=== PATIENT | male | born 1960 | race Two or more races ===

== ENCOUNTER 2016-06-28 04:21 | Inpatient (IN) | payer OTHER ==
[2016-06-28] VITALS (7 sets, daily range): BP systolic 106–113; BP diastolic 62–79
[~2016-06-28] VITALS: Ht 175.3 cm; Wt 71.2 kg
[~2016-06-28 04:21] MED LIST: BUPR150T12 PO; TRAZ150T68 PO
[2016-06-28] MEDS ORDERED: IV SET PRIMARY 1 EA INFUS.SET MC ONE ×3 (04:47→06:55)
[2016-06-28] MEDS ORDERED: Magnesium 1GM/D5W 100ML PREMIX 200 ML IV ONE (04:47)
[2016-06-28] MEDS ORDERED: IV NS 0.9% 1,000 ML ONE ×3 (04:47→06:55)
[2016-06-28 04:57] LABS: HEMATOCRIT 46 % (39-51); HEMOGLOBIN 15.4 g/dL (13.5-17.5); LYMPHOCYTES # (AUTO) 0.4 /CMM (0.8-4.8); LYMPHOCYTES % (AUTO) 1.9 % (20.0-44.0); MEAN CORPUSCULAR HEMOGLOBIN 31 PG (26.0-33.0); MEAN CORPUSCULAR HGB CONC 34 g/dl (31.0-36.0); MEAN CORPUSCULAR VOLUME 92 fL (80-96); MONOCYTES # (AUTO) 1.2 /CMM (0.1-1.30); MONOCYTES % (AUTO) 5.6 % (2.0-12.0); NEUTROPHILS # (AUTO) 19.3 /CMM (1.8-8.9); NEUTROPHILS % (AUTO) 92.5 % (43.0-81.0); PLATELET COUNT (AUTO) 324 /CMM (150-450); RDW COEFFICIENT OF VARIATION 14.3 (11.5-15.0); RED BLOOD CELL COUNT(AUTO) 4.96 MIL/uL (4.5-6.0); WHITE BLOOD COUNT (AUTO) 20.9 K/uL (4.3-11.0)
--- NOTE | 2016-06-28 04:58 | NUR ---
PT BIBDean, PT IS A./OX4 BREATHING EFFORTLESSLY ON ROOM AIR, PT STATES HE DRANK 3 5THS OF VODKA AND WINE AND BEER TODAY, PT IS ON MONITOR, PT CLEANED UP, IV PLACED, BLOOD DRAWN, MD LATIF AWARE WILL CONTINUE TO MONITOR.
[2016-06-28] MEDS ORDERED: IV NS 0.9% 1,000 ML BAG IV ONE ×4 (05:00→09:30)
[2016-06-28] MEDS ORDERED: Magnesium 1 GM/2 ML VIAL IV ONE (05:00)
[2016-06-28 05:04] LABS: CALCIUM, SERUM 8.3 mg/dL (8.5-10.1); CREATININE 1.1 mg/dL (0.6-1.3); POTASSIUM 3.1 mmol/L (3.5-5.1)
[2016-06-28 05:08] LABS: INR 0.96 (0.87-1.13); PROTHROMBIN TIME 10.2 SECS (9.5-12.7)
[2016-06-28 05:10] LABS: ALBUMIN 4.2 g/dL (3.4-5.0); BILIRUBIN,DIRECT 0.2 mg/dL (0.0-0.2); BILIRUBIN,TOTAL 0.6 mg/dL (0.2-1.0); TOTAL PROTEIN, SERUM 8.8 g/dL (6.4-8.2)
[2016-06-28 05:11] LABS: SALICYLATE 1.7 mg/dL (2.8-20.0)
[2016-06-28 05:29] LABS: BAND % (MANUAL) 29 % (0.0-5.0); LYMPHOCYTES % (MANUAL) 2 % (16-48); MONOCYTES % (MANUAL) 8 % (0-11.0); NEUTROPHILS % (MANUAL) 60 (42-76); REACTIVE LYMPHOCYTES 1 % (0-0)
[2016-06-28] MEDS ORDERED: LORAZEPAM INJ 2 MG/ML VIAL ONE ×2 (05:51→05:58)
[2016-06-28] MEDS ORDERED: LORAZEPAM INJ 2 MG/ML VIAL IV ONE ×2 (06:00)
[2016-06-28] MEDS ORDERED: LIDOCAINE 2% JEL UROJET 10 ML MM ONE ×2 (06:43→07:00)
[2016-06-28] MEDS ORDERED: ACETAMINOPHEN ES 500 MG TABLET ONE (06:46)
--- NOTE | 2016-06-28 06:47 | NUR ---
PT HAS AN ELEVATED TEMPERATURE NOW, MADE AWARE, PT SLEEPING IN BED ON MONITOR, WILL CONTINUE TO MONITOR.
[2016-06-28] MEDS ORDERED: ACETAMINOPHEN 325 MG TABLET PO ONE (07:00)
[2016-06-28] MEDS ORDERED: CEFTRIAXONE 1GM BAG (ER ONLY) 50 ML IV ONE (07:00)
[2016-06-28] MEDS ORDERED: PIPERACILLIN /TAZOBACTAM 3.375 G in IV D5W 50 ML IV ONE (07:00)
--- NOTE | 2016-06-28 07:15 | NUR ---
RECEIVED REPORT FROM [facility]
[2016-06-28] MEDS ORDERED: IV SET PRIMARY PUMP SET 1 EA INFUS.SET MC ONE ×5 (07:27→14:51)
[2016-06-28 07:32] LABS: APPEARANCE,URINE CLEAR (CLEAR); BILIRUBIN,URINE NEGATIVE (NEGATIVE); BLOOD, URINE TRACE-INTA Ery/uL (NEGATIVE); COLOR,URINE YELLOW (YELLOW); KETONES,URINE NEGATIVE (NEGATIVE); LEUKOCYTE ESTERASE ,URINE NEGATIVE (NEGATIVE); NITRITE, URINE NEGATIVE (NEGATIVE); PROTEIN,URINE NEGATIVE (NEGATIVE); UGLUCOSE NEGATIVE (NEGATIVE); UROBILINOGEN,URINE 0.2 EU/dL (0.2)
[2016-06-28 07:40] LABS: WBC,URINE 0-2 /HPF (0-3)
[2016-06-28 07:41] LABS: BACTERIA,URINE Rare /HPF (None Seen)
--- NOTE | 2016-06-28 07:45 | NUR ---
PAGED DR EVGENY KLEIN FOR ADMISSION
--- NOTE | 2016-06-28 08:44 | NUR ---
GAVE REPORT TO TROY CRANEFLAKER OPERATOR ROOM 323-2. DX FEVER , DIARRHEA. DR PEPPER ADMITTING. TRANSFER VIA ACLS PROTOCOL
--- NOTE | 2016-06-28 09:00 | NUR ---
SEEING EYE DOG TRAINERARCADE ATTENDANT NOTES ADMITTED PT FROM ER WITH DX OF SEIZURE.SKIN IS WARM AND DRY WITH NON LABORED RESPIRATION ON ROOM AIR.PT IS SLEEPING AND RESPONSIVE ONLY WITH TACTILE STIMULI.OCCASIONALLY SPEAKS UP BUT SPEECH IS UNCLEAR AND CAN'T BE UNDERSTOOD.SKIN INTACT.WILL CONTINUE TO MONITOR.
[2016-06-28 09:27] LABS: SQUAMOUS EPITHELIAL CELL,UR Rare /HPF (None Seen)
[2016-06-28] MEDS ORDERED: VANCOMYCIN 1 GM in IV D5W 250 ML IV ONE (09:30)
[2016-06-28] MEDS ORDERED: ZOLPIDEM TARTRATE 5 MG TABLET PO PRN (09:30)
[2016-06-28] MEDS ORDERED: ONDANSETRON HCL/PF 4 MG/2 ML VIAL IVP PRN (09:30)
[2016-06-28] MEDS ORDERED: Z GUARD REMEDY 2 OZ OINT TP PRN (09:30)
[2016-06-28] MEDS ORDERED: HYDROCODONE/APAP 5/325MG 1 EACH TABLET PO PRN (09:30)
[2016-06-28] MEDS ORDERED: MAGNESIUM HYDROXIDE 30 ML UDC PO PRN (09:30)
[2016-06-28] MEDS ORDERED: MAG HYDROX/AL HYDROX/SIMETH 30 ML UDC PO PRN (09:30)
[2016-06-28] MEDS ORDERED: LORAZEPAM INJ 2 MG/ML VIAL IVP PRN (09:30)
[2016-06-28] MEDS ORDERED: MORPHINE SULFATE INJ 2 MG/ML DISP.SYRIN IV PRN ×2 (09:30)
[2016-06-28] MEDS ORDERED: ACETAMINOPHEN 325 MG TABLET PO PRN (09:30)
[2016-06-28] MEDS ORDERED: IV D5/ 0.9% NACL 1,000 ML IV PRN ×2 (09:30)
[2016-06-28] MEDS ORDERED: FEE PK DOSING 1 MIN EA MC ONE (10:31)
[2016-06-28 10:49] LABS: BILIRUBIN,DIRECT 0.1 mg/dL (0.0-0.2); BILIRUBIN,TOTAL 0.9 mg/dL (0.2-1.0); TOTAL PROTEIN, SERUM 6.7 g/dL (6.4-8.2)
[2016-06-28] MEDS ORDERED: POTASSIUM CHLORIDE 20 MEQ TAB.PRT.SR PO SCH (11:00)
[2016-06-28] MEDS: PANTOPRAZOLE 40 MG VIAL IV SCH (12:13)
[2016-06-28] MEDS: Folic acid 1 MG in IV D5W 50 ML IV SCH (12:14)
[2016-06-28] MEDS: POTASSIUM CL. PREMIX PERIPHER. 50 ML IV SCH ×6 (12:35→18:44)
[2016-06-28] MEDS: Thiamine 100 MG in IV D5W 50 ML IV SCH (13:03)
[2016-06-28] MEDS: VANCOMYCIN 1.25 GM in IV D5W 500 ML IV SCH ×2 (13:20→23:20)
--- NOTE | 2016-06-28 13:30 | NUR ---
CALLED DR PEPPER AND UPDATED ON PT'S SEPSIS REASSESSMENT POST FLUID RESULT.
[2016-06-28] MEDS: PIPERACILLIN /TAZOBACTAM 3.375 G in IV D5W 50 ML IV SCH ×2 (13:41→18:44)
--- NOTE | 2016-06-28 13:45 | NUR ---
CONSENT FOR LUMBAR PUNCTURE NOT YET OBTAINED. RADIOLOGIST NOT AVAILABLE AFTER 1400. RN AWARE.
[2016-06-28] MEDS: NYSTATIN (PYXIS) 500,000 UNIT/5 ML ORAL.SUSP PO SCH ×2 (13:46→16:21)
[2016-06-28] MEDS: IV D5/ 0.9% NACL 1,000 ML IV PRN ×2 (14:51→23:20)
--- NOTE | 2016-06-28 17:00 | NUR ---
INSTRUCTED PT THAT WE WILL INSERT PÉREZ CATHETER BUT PT REFUSED INSPITE OF EXPLAINING ITS RISKS AND BENEFITS.
--- NOTE | 2016-06-28 17:20 | NUR ---
PT VOIDED IN THE URINAL AND WAS ABLE TO COLLECT URINE SPECIMEN FOR UA PROFILE AND DRUG SCREENING.NOTIFIED LAB FOR [facility]ANNER INTERNSHIP.
--- NOTE | 2016-06-28 17:30 | NUR ---
PT WAS SEEN BY DR DEL REAL AND MADE AWARE THAT PT HAD DIARRHEA EPISODES X3 AND WAS SO WATERY THAT IT GOES ON THE SHEETS AND DIAPER.PT REFUSED TO USE BEDPAN.WILL TRY LATER.
--- NOTE | 2016-06-28 19:30 | NUR ---
RN NOTE RECEIVED REPORT. PT RESTING IN BED WITH EYES CLOSED, OPENS EYES WITH STIMULI. MUMBLE SPEECH. NO S/S OF ANY DISTRESS AT THIS TIME, BREATHING NON-LABORED AND EVEN ON 2L NC. SKIN WARM TO TOUCH, NON-DIAPHORETIC. IV INTACT AND PATENT, TELE SHOWS SR IN 80'S. CALL LIGHT IN ERACH, WILL CONT TO MONITOR. SEIZURE PRECAUTIONS RENDERED.
[2016-06-28] MEDS: VANCOMYCIN HCL 125 MG/2.5 ML ORAL.SUSP PO SCH (21:00)
--- NOTE | 2016-06-28 21:42 | NUR ---
RN NOTE VANCOCIN MED HELD PT NPO.
[2016-06-28] MEDS ORDERED: SECONDARY IV SET 1 EA INFUS.SET MC ONE (23:20)
[2016-06-28] MEDS ORDERED: IV NS 0.9% 250 ML IV ONE (23:27)
[2016-06-29] MEDS: PIPERACILLIN /TAZOBACTAM 3.375 G in IV D5W 50 ML IV SCH ×4 (00:19→18:01)
[2016-06-29 04:00] VITALS: BP 114/72
[2016-06-29] MEDS: IV D5/ 0.9% NACL 1,000 ML IV PRN ×2 (05:53→23:40)
--- NOTE | 2016-06-29 06:38 | NUR ---
RN NOTE NO SIGNIFICANT CHANGES THIS SHIFT. PT BECOMING MORE ALERT AND RESPONSIVE T/O SHIFT. NO S/S OF ANY DISTRESS AT THIS TIME. ON NC 2L, SATTING WELL. NO SEIZURE ACTIVITY OBSERVED OVERNIGHT, PRECUATIONS RENDERED. IV INTACT AND PATENT, TELE - SR. NPO STATUS - FOR SWALLOW EVAL TODAY. WILL F/U WITH DAY SHIFT FOR [facility].
[2016-06-29 06:58] LABS: BASOPHILS % (AUTO) 0.2 % (0.0-2.0); EOSINOPHILS # (AUTO) 0.1 /CMM (0.0-0.7); EOSINOPHILS % (AUTO) 0.6 % (0.0-6.0); HEMATOCRIT 38 % (39-51); HEMOGLOBIN 12.6 g/dL (13.5-17.5); LYMPHOCYTES % (AUTO) 9.1 % (20.0-44.0); MEAN CORPUSCULAR HEMOGLOBIN 32 PG (26.0-33.0); MEAN CORPUSCULAR HGB CONC 34 g/dl (31.0-36.0); MEAN CORPUSCULAR VOLUME 95 fL (80-96); MONOCYTES # (AUTO) 0.9 /CMM (0.1-1.30); MONOCYTES % (AUTO) 7.6 % (2.0-12.0); NEUTROPHILS # (AUTO) 9.4 /CMM (1.8-8.9); NEUTROPHILS % (AUTO) 82.5 % (43.0-81.0); PLATELET COUNT (AUTO) 272 /CMM (150-450); RDW COEFFICIENT OF VARIATION 14.3 (11.5-15.0); RED BLOOD CELL COUNT(AUTO) 3.97 MIL/uL (4.5-6.0); WHITE BLOOD COUNT (AUTO) 11.3 K/uL (4.3-11.0)
[2016-06-29 07:07] LABS: INR 0.98 (0.87-1.13); PROTHROMBIN TIME 10.5 SECS (9.5-12.7)
[2016-06-29 07:17] LABS: TROPONIN I < 0.017 ng/mL (0.00-0.056)
[2016-06-29 07:19] LABS: ALANINE AMINOTRANSFERASE 20 U/L (12-78); ALBUMIN 2.3 g/dL (3.4-5.0); ALKALINE PHOSPHATASE 58 U/L (46-116); ASPARTATE AMINOTRANSFERASE 19 U/L (15-37); BILIRUBIN,TOTAL 0.4 mg/dL (0.2-1.0); CALCIUM, SERUM 7.1 mg/dL (8.5-10.1); CARBON DIOXIDE 25 mmol/L (21-32); CHLORIDE 106 mmol/L (98-107); CREATININE 0.7 mg/dL (0.6-1.3); GLUCOSE 147 mg/dL (74-106); PHOSPHORUS 1.4 mg/dL (2.5-4.9); POTASSIUM 3.1 mmol/L (3.5-5.1); SODIUM SERUM 137 mmol/L (136-145); TOTAL PROTEIN, SERUM 5.8 g/dL (6.4-8.2); UREA NITROGEN, BLOOD 10 mg/dL (7-18)
[2016-06-29 07:25] LABS: CHOLESTEROL 138 mg/dL (<200); HDL CHOLESTEROL 80 mg/dL (40-60); LDL 45 mg/dL (0-99); TRIGLYCERIDES 66 mg/dL (30-150)
[2016-06-29] MEDS ORDERED: PANTOPRAZOLE 40 MG TABLET.DR PO SCH (07:30)
[2016-06-29 07:41] LABS: IRON, SERUM 20 ug/dl (50-175); TOTAL IRON BINDING CAPACITY 242 ug/dl (250-450)
[2016-06-29 08:00] VITALS: BP 120/62
[2016-06-29] MEDS ORDERED: POTASSIUM CL. PREMIX PERIPHER. 50 ML IV SCH (08:00)
[2016-06-29] MEDS ORDERED: POTASSIUM PHOSPHATE MM 15 MMOL in IV D5W 250 ML IV SCH (08:00)
--- NOTE | 2016-06-29 08:00 | NUR ---
MS RN NOTES RECEIVED REPORT WITH PATIENT IN BED. PATIENT IS A/OX3. NO SOB OR ANY S/S OF ACUTE DISTRESS NOTED. IV'S ARE PATENT AND INTACT. BED IS IN LOW LOCKED POSITION. CALL LIGHT IS WITHIN REACH. WILL CONTINUE TO MONITOR THROUGHOUT SHIFT.
[2016-06-29] MEDS ORDERED: POTASSIUM PHOSPHATE MM 7.5 MMOL in IV D5W 100 ML IV SCH (09:00)
[2016-06-29] MEDS: VANCOMYCIN HCL 125 MG/2.5 ML ORAL.SUSP PO SCH ×4 (09:00→20:58)
[2016-06-29] MEDS: NYSTATIN (PYXIS) 500,000 UNIT/5 ML ORAL.SUSP PO SCH ×3 (09:00→18:01)
[2016-06-29] MEDS ORDERED: PANTOPRAZOLE 40 MG VIAL IV SCH (09:00)
[2016-06-29] MEDS: NICOTINE PATCH (14MG) 14 MG PATCH.TD24 TD SCH (09:00)
[2016-06-29] MEDS ORDERED: MULTIVITAMIN LIQ 5 ML UDC GT SCH (09:00)
[2016-06-29] MEDS ORDERED: NEUTRA PHOS 1 POWD.PACKET PO ONE (11:00)
[2016-06-29] MEDS ORDERED: SECONDARY IV SET 1 EA INFUS.SET MC ONE (11:26)
[2016-06-29] MEDS ORDERED: Sodium Phosphate 15 MMOL in IV D5W 250 ML IV ONE (11:30)
[2016-06-29] MEDS: MULTIVITAMINS,THERAPEUTIC 1 UDTAB TABLET PO SCH (11:32)
[2016-06-29] MEDS: PANTOPRAZOLE 40 MG VIAL IV SCH (11:32)
[2016-06-29] MEDS: LORAZEPAM 1 MG TABLET PO PRN ×2 (11:32→20:58)
[2016-06-29] MEDS: POTASSIUM CHLORIDE 20 MEQ TAB.PRT.SR PO SCH ×2 (11:32→13:19)
[2016-06-29] MEDS: VANCOMYCIN 1.25 GM in IV D5W 500 ML IV SCH ×2 (11:33→23:40)
[2016-06-29] MEDS: Thiamine 100 MG in IV D5W 50 ML IV SCH (11:33)
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
[2016-06-29] MEDS: Folic acid 1 MG in IV D5W 50 ML IV SCH (12:18)
[2016-06-29 16:00] VITALS: BP 135/92
--- NOTE | 2016-06-29 18:54 | NUR ---
MS RN NOTES PATIENT IS RESTING COMFORTABLY IN BED. PATIENT IS CURRENTLY A/OX4. NO S/S OF ACUTE DISTRESS NOTED. NO SOB NOTED. PATIENT CURRENTLY ON ROOM AIR. ALL PATIENT NEEDS HAVE BEEN MET. BED IN LOW LOCKED POSITION. CALL LIGHT WITHIN REACH. WILL ENDORSE CARE TO PM SHIFT.
--- NOTE | 2016-06-29 19:00 | NUR ---
RN NOTE RECEIVED REPORT. PT AAOX3-4, NO C/O OF PAIN OR DISCOMFORT AT THIS TIME. NO S/S OF ANY DISTRESS. IV'S INTACT AND PATENT, TOLERATING FLUIDS WELL. ON NC 2L. CALL LIGHT IN REACH, WILL CONT TO MONITOR.
[2016-06-29 20:00] VITALS: BP 131/92
[2016-06-30] MEDS: PIPERACILLIN /TAZOBACTAM 3.375 G in IV D5W 50 ML IV SCH ×3 (00:49→12:00)
--- NOTE | 2016-06-30 06:27 | NUR ---
RN NOTE NO SIGNIFICANT CHANGES OVERNIGHT. PT AAOX4, NO S/S OF ANY DISTRESS AT THIS TIME. IV INTACT AND PATENT, TOLERATING ABX WELL. NO SEIZURE ACTIVITY NOTED. ALL NEEDS ATTENDED TO, CALL LIGHT IN REACH. WILL F/U WITH DAY SHIFT FOR [facility].
[2016-06-30 08:00] VITALS: BP 142/97
--- NOTE | 2016-06-30 08:00 | NUR ---
MS RN NOTES RECEIVED REPORT WITH PATIENT A/OX4. NO S/S OF DISTRESS NOTED. NO SOB NOTED. IV PATENT AND INTACT. PATIENT DENIES PAIN AT THIS MOMENT. BED IN LOW LOCKED POSITION. CALL LIGHT WITHIN REACH. WILL CONTINUE TO MONITOR THROUGHOUT SHIFT.
[2016-06-30 08:28] LABS: CALCIUM, SERUM 7.8 mg/dL (8.5-10.1); CREATININE 0.7 mg/dL (0.6-1.3); MAGNESIUM 1.8 mg/dL (1.8-2.4); PHOSPHORUS 2.5 mg/dL (2.5-4.9); POTASSIUM 3.7 mmol/L (3.5-5.1)
[2016-06-30] MEDS: NYSTATIN (PYXIS) 500,000 UNIT/5 ML ORAL.SUSP PO SCH ×2 (08:39→14:23)
[2016-06-30] MEDS: MULTIVITAMINS,THERAPEUTIC 1 UDTAB TABLET PO SCH (08:39)
[2016-06-30] MEDS: VANCOMYCIN HCL 125 MG/2.5 ML ORAL.SUSP PO SCH ×2 (08:39→14:23)
[2016-06-30] MEDS: LORAZEPAM 1 MG TABLET PO PRN (08:39)
[2016-06-30] MEDS: NICOTINE PATCH (14MG) 14 MG PATCH.TD24 TD SCH (08:40)
[2016-06-30 09:04] LABS: BASOPHILS % (AUTO) 0.3 % (0.0-2.0); EOSINOPHILS # (AUTO) 0.2 /CMM (0.0-0.7); EOSINOPHILS % (AUTO) 1.8 % (0.0-6.0); HEMATOCRIT 39 % (39-51); LYMPHOCYTES # (AUTO) 1.2 /CMM (0.8-4.8); LYMPHOCYTES % (AUTO) 11.6 % (20.0-44.0); MEAN CORPUSCULAR HEMOGLOBIN 31 PG (26.0-33.0); MEAN CORPUSCULAR HGB CONC 34 g/dl (31.0-36.0); MEAN CORPUSCULAR VOLUME 94 fL (80-96); MONOCYTES % (AUTO) 9.6 % (2.0-12.0); NEUTROPHILS # (AUTO) 8.1 /CMM (1.8-8.9); NEUTROPHILS % (AUTO) 76.7 % (43.0-81.0); PLATELET COUNT (AUTO) 261 /CMM (150-450); RDW COEFFICIENT OF VARIATION 13.6 (11.5-15.0); RED BLOOD CELL COUNT(AUTO) 4.14 MIL/uL (4.5-6.0); WHITE BLOOD COUNT (AUTO) 10.5 K/uL (4.3-11.0)
[2016-06-30] MEDS: Folic acid 1 MG in IV D5W 50 ML IV SCH (11:30)
[2016-06-30] MEDS: Thiamine 100 MG in IV D5W 50 ML IV SCH (11:30)
[2016-06-30] MEDS: VANCOMYCIN 1.25 GM in IV D5W 500 ML IV SCH (11:30)
[2016-06-30] MEDS: PANTOPRAZOLE 40 MG VIAL IV SCH (11:30)
--- NOTE | 2016-06-30 13:55 | NUR ---
ANGIE met with pt. bedside and gave him a pair of pants and shirt per his request. ANGIE informed pt. furnace charger Vilma will be getting the bus tokens for him. Pt. was appreciative.
--- NOTE | 2016-06-30 14:30 | NUR ---
MS RN NOTES PATIENT REQUESTING TO LEAVE AMA. RISKS OF LEAVING AMA HAS BEEN DISCUSSED TO THE PATIENT. PATIENT AGREED. PATIENT REQUESTED TO BE DISCHARGED TO [facility] AND REQUESTED 2 BUS TOKENS. 2 BUS TOKENS WERE PROVIDED. CLOTHES WERE PROVIDED TO THE PATIENT BY THE RUG MEASURER. MD AWARE. ID BAND HAS BEEN REMOVED. IV HAS BEEN REMOVED.
[2016-07-01] MEDS ORDERED: THIAMINE HCL 100 MG TABLET PO SCH (09:00)
[2016-07-01] MEDS ORDERED: FOLIC ACID 1 MG TABLET PO SCH (09:00)
[2016-07-02 15:10] LABS: *HIV-1 RNA BY PCR <20 copies/mL (.)
== END 2016-06-30 15:00 | disposition left against medical advice (07) | DRG 720 ==
LOC: ER 04:24 → TELE 08:44 → MED 06-29 09:21
PROVIDERS: ADMIT Internal Medicine; ATTEND Internal Medicine
PROC: 05H533Z Insertion of Infusion Device into Right Subclavian Vein, Percutaneous Approach (ICD-10-PCS; principal; 2016-06-28)
DX: A41.9 Sepsis, unspecified organism (principal); N17.0 Acute kidney failure with tubular necrosis; G93.41 Metabolic encephalopathy; E87.2 Acidosis; R65.20 Severe sepsis without septic shock; B37.0 Candidal stomatitis; G40.909 Epilepsy, unspecified, not intractable, without status epilepticus; Z59.0 Homelessness; G89.29 Other chronic pain; F10.239 Alcohol dependence with withdrawal, unspecified; Y90.4 Blood alcohol level of 80-99 mg/100 ml; E87.6 Hypokalemia; E86.0 Dehydration; E61.1 Iron deficiency; R00.0 Tachycardia, unspecified; F09 Unspecified mental disorder due to known physiological condition; E83.42 Hypomagnesemia; R19.7 Diarrhea, unspecified; F19.10 Other psychoactive substance abuse, uncomplicated
CPT/HCPCS: 36415; 70450-TC; 71010-TC; 76705-TC; 80048-TC; 80053-TC; 80061-TC; 80076-TC; 80305; 81000-TC; 82150-TC; 82272-TC; 82550-TC; 82746; 83540-TC; 83605-TC; 83690-TC; 83735-TC; 84100-TC; 84443-TC; 84484-TC; 85025-TC; 85730-TC; 87040-TC; 87045-TC; 87081-TC; 87086-TC; 87536; 92611-TC; 93307-TC; 97001-TC; A4606; A9563; C9113; G0480; G6039-TC; J2060; J2270; J2543; J3370; J3411; J3475; J3480; J3490; J7030; J7042; J7050; J7060; Z7610

== ENCOUNTER 2022-11-05 13:13 | Inpatient (IN) | payer MEDICAID, OTHER ==
[~2022-11-05] VITALS: Ht 175.3 cm; Wt 59.9 kg
[2022-11-05] MEDS ORDERED: VANCOMYCIN 1 GM in IV D5W 250 ML IV ONE (13:30)
[2022-11-05] MEDS ORDERED: IV NS 0.9% 1,000 ML BAG IV ONE (13:30)
[2022-11-05] MEDS ORDERED: CEFEPIME 1 GM in IV D5W 50 ML IV ONE (13:30)
[2022-11-05] MEDS ORDERED: VANCOMYCIN 1 GM /D5W 250 ML PB IV ONE (13:36)
[2022-11-05 16:30] LABS: BASOPHILS # (AUTO) 0.1 K/uL (0.0-0.2); BASOPHILS % (AUTO) 0.5 % (0.0-2.0); EOSINOPHILS # (AUTO) 0.1 K/uL (0.0-0.7); EOSINOPHILS % (AUTO) 1.1 % (0.0-6.0); HEMATOCRIT 31 % (39-51); HEMOGLOBIN 10.4 g/dL (13.5-17.5); LYMPHOCYTES # (AUTO) 1.5 K/uL (0.8-4.8); MEAN CORPUSCULAR HEMOGLOBIN 29 PG (26.0-33.0); MEAN CORPUSCULAR HGB CONC 34 g/dl (31.0-36.0); MEAN CORPUSCULAR VOLUME 86 fL (80-96); MONOCYTES % (AUTO) 14.2 % (2.0-12.0); NEUTROPHILS # (AUTO) 10.1 K/uL (1.8-8.9); NEUTROPHILS % (AUTO) 73.2 % (43.0-81.0); PLATELET COUNT (AUTO) 446 K/uL (150-450); RED BLOOD CELL COUNT(AUTO) 3.61 MIL/uL (4.5-6.0); RED CELL DISTRIBUTION WIDTH 15.7 % (11.5-15.0); WHITE BLOOD COUNT (AUTO) 13.8 K/uL (4.3-11.0)
[2022-11-05] MEDS ORDERED: Z GUARD REMEDY 4 OZ OINT TP PRN (16:30)
[2022-11-05] MEDS ORDERED: ZOLPIDEM TARTRATE 5 MG TABLET PO PRN (16:30)
[2022-11-05] MEDS ORDERED: MAGNESIUM HYDROXIDE 30 ML UDC PO PRN (16:30)
[2022-11-05] MEDS ORDERED: ONDANSETRON HCL/PF 4 MG/2 ML VIAL IVP PRN (16:30)
[2022-11-05] MEDS ORDERED: MAG HYDROX/AL HYDROX/SIMETH 30 ML UDC PO PRN (16:30)
[2022-11-05] MEDS ORDERED: ACETAMINOPHEN 325 MG TABLET PO PRN (16:30)
[2022-11-05 16:44] LABS: INR 1.05 (0.91-1.10); PARTIAL THROMBOPLASTIN TIME 35.9 SEC (24.3-34.3); PROTHROMBIN TIME 11.1 SECS (9.2-11.1)
[2022-11-05] MEDS ORDERED: OMEP40CA21 PO (16:52)
[2022-11-05] MEDS ORDERED: SENN-261 PO (16:52)
[2022-11-05] MEDS ORDERED: GABA-532 PO (16:52)
[2022-11-05] MEDS ORDERED: BACL10TA PO (16:52)
[2022-11-05] MEDS ORDERED: ATOR40TA PO (16:52)
[2022-11-05] MEDS ORDERED: OXYC-128 PO (16:52)
[2022-11-05] MEDS ORDERED: POLY17PO4 PO (16:52)
[2022-11-05] MEDS ORDERED: BISA10SU11 RC (16:52)
[2022-11-05] MEDS ORDERED: ACET-868 PO (16:52)
[2022-11-05] MEDS ORDERED: GABA600T12 PO (16:52)
[2022-11-05] MEDS ORDERED: NA P133E RC (16:52)
[2022-11-05] MEDS ORDERED: MAGN400O6 PO (16:52)
[2022-11-05] MEDS ORDERED: DOXY100C2 PO (16:52)
[2022-11-05] MEDS ORDERED: MULT-447 PO (16:52)
[2022-11-05] MEDS ORDERED: OXYC15TA2 PO (16:52)
[2022-11-05] MEDS ORDERED: ASCO-352 PO (16:52)
[2022-11-05] MEDS ORDERED: DICL100G34 TP (16:52)
[2022-11-05] MEDS ORDERED: AMIN30LI2 PO (16:52)
[2022-11-05] MEDS ORDERED: NALO4SPR NS (16:52)
[2022-11-05] MEDS ORDERED: FOLI0.4T6 PO (16:52)
[2022-11-05] MEDS ORDERED: OXYC5TAB3 PO (16:52)
[2022-11-05] MEDS ORDERED: MIRT-90 PO (16:52)
[2022-11-05 16:56] LABS: CALCIUM, SERUM 8.9 mg/dL (8.5-10.1); CARBON DIOXIDE 25 mmol/L (21-32); CHLORIDE 92 mmol/L (98-107); CREATININE 0.5 mg/dL (0.6-1.3); GLUCOSE 94 mg/dL (74-106); POTASSIUM 2.9 mmol/L (3.5-5.1); SODIUM SERUM 130 mmol/L (136-145); UREA NITROGEN, BLOOD 20 mg/dL (7-18)
[2022-11-05 17:02] LABS: LACTIC ACID 1.6 mmol/L (0.4-2.0)
[2022-11-05 17:09] LABS: ALANINE AMINOTRANSFERASE 31 U/L (12-78); ALBUMIN 3.4 g/dL (3.4-5.0); ALKALINE PHOSPHATASE 110 U/L (46-116); ASPARTATE AMINOTRANSFERASE 33 U/L (15-37); BILIRUBIN,DIRECT 0.4 mg/dL (0.0-0.2); BILIRUBIN,TOTAL 1.3 mg/dL (0.2-1.0)
[2022-11-05] MEDS: CEFTRIAXONE 1 G in IV D5W 50 ML IV SCH (20:45)
[2022-11-05] MEDS: IV D5/0.45 NACL 1,000 ML IV PRN (20:45)
[2022-11-05 21:30] VITALS: BP 104/54; O2SAT 98
[2022-11-05] MEDS ORDERED: POTASSIUM CHLORIDE 20 MEQ TAB.PRT.SR PO ONE (21:30)
[2022-11-05] MEDS: VANCOMYCIN 1 GM in IV D5W 250 ML IV SCH (21:49)
[2022-11-05] MEDS ORDERED: oxyCODONE/APAP (5/325 MG) 1 UDTAB TABLET PO PRN (22:30)
[2022-11-06] MEDS: oxyCODONE/APAP (5/325 MG) 1 UDTAB TABLET PO PRN ×4 (01:14→23:00)
[2022-11-06] MEDS ORDERED: POTASSIUM CHLORIDE 20 MEQ TAB.PRT.SR PO ONE (05:00)
[2022-11-06] MEDS: VANCOMYCIN 1 GM in IV D5W 250 ML IV SCH ×3 (05:34→22:07)
[2022-11-06 06:32] LABS: BASOPHILS # (AUTO) 0.1 K/uL (0.0-0.2); BASOPHILS % (AUTO) 1.2 % (0.0-2.0); EOSINOPHILS # (AUTO) 0.3 K/uL (0.0-0.7); EOSINOPHILS % (AUTO) 2.9 % (0.0-6.0); HEMATOCRIT 30 % (39-51); HEMOGLOBIN 10.1 g/dL (13.5-17.5); LYMPHOCYTES # (AUTO) 1.6 K/uL (0.8-4.8); LYMPHOCYTES % (AUTO) 17.1 % (20.0-44.0); MEAN CORPUSCULAR HEMOGLOBIN 29 PG (26.0-33.0); MEAN CORPUSCULAR HGB CONC 34 g/dl (31.0-36.0); MEAN CORPUSCULAR VOLUME 87 fL (80-96); MONOCYTES # (AUTO) 1.5 K/uL (0.1-1.30); MONOCYTES % (AUTO) 16.1 % (2.0-12.0); NEUTROPHILS # (AUTO) 5.9 K/uL (1.8-8.9); NEUTROPHILS % (AUTO) 62.7 % (43.0-81.0); PLATELET COUNT (AUTO) 350 K/uL (150-450); RED BLOOD CELL COUNT(AUTO) 3.48 MIL/uL (4.5-6.0); RED CELL DISTRIBUTION WIDTH 15.9 % (11.5-15.0); WHITE BLOOD COUNT (AUTO) 9.4 K/uL (4.3-11.0)
[2022-11-06 06:51] LABS: ALBUMIN 2.7 g/dL (3.4-5.0); BILIRUBIN,TOTAL 0.7 mg/dL (0.2-1.0); CALCIUM, SERUM 8.2 mg/dL (8.5-10.1); CREATININE 0.6 mg/dL (0.6-1.3); MAGNESIUM 2.1 mg/dL (1.8-2.4); PHOSPHORUS 2.6 mg/dL (2.5-4.9); POTASSIUM 3.2 mmol/L (3.5-5.1); TOTAL PROTEIN, SERUM 6.6 g/dL (6.4-8.2)
[2022-11-06 07:00] VITALS: BP 102/71; TEMP 97.9; O2SAT 97
[2022-11-06 08:24] LABS: ANISOCYTOSIS 1+; EOSINOPHILS % (MANUAL) 3 % (0-4); LYMPHOCYTES % (MANUAL) 20 % (16-48); MONOCYTES % (MANUAL) 13 % (0-11.0); NEUTROPHILS % (MANUAL) 64 (42-76); PLATELET ESTIMATE ADEQUATE
[2022-11-06 08:25] LABS: OVALOCYTES 1+
[2022-11-06] MEDS: DAKINS QUARTER STRENGTH (0.125%) 480 ML BOTTLE TOP SCH (12:45)
[2022-11-06 16:00] VITALS: BP 97/72; TEMP 98; O2SAT 99
[2022-11-06] MEDS: CEFTRIAXONE 1 G in IV D5W 50 ML IV SCH (19:30)
[2022-11-06 20:00] VITALS: BP 103/64; TEMP 98.6; O2SAT 95
[2022-11-06] MEDS: IV D5/0.45 NACL 1,000 ML IV PRN (23:21)
[2022-11-07] MEDS: VANCOMYCIN 1 GM in IV D5W 250 ML IV SCH (05:17)
[2022-11-07] MEDS: oxyCODONE/APAP (5/325 MG) 1 UDTAB TABLET PO PRN ×3 (05:18→20:15)
[2022-11-07 06:40] LABS: CALCIUM, SERUM 8.1 mg/dL (8.5-10.1); CREATININE 0.5 mg/dL (0.6-1.3); POTASSIUM 3.4 mmol/L (3.5-5.1)
[2022-11-07 08:00] VITALS: BP 119/78; TEMP 97.7; O2SAT 97
[2022-11-07] MEDS: DAKINS QUARTER STRENGTH (0.125%) 480 ML BOTTLE TOP SCH (09:43)
[2022-11-07] MEDS: HYDROMORPHONE 1 MG/1 ML DISP.SYRIN IV PRN (09:59)
[2022-11-07] MEDS ORDERED: POTASSIUM CHLORIDE 20 MEQ TAB.PRT.SR PO SCH (10:00)
[2022-11-07] MEDS: PROSOURCE / PROSTAT (PYXIS) 30 ML UDC PO SCH ×2 (12:02→16:01)
[2022-11-07] MEDS: THERAHONEY GEL 1.5 OZ TUBE TP SCH (14:00)
[2022-11-07] MEDS: VANCOMYCIN HCL 0.75 GM in IV D5W 250 ML IV SCH ×2 (15:49→21:57)
[2022-11-07 16:00] VITALS: BP 138/62; TEMP 98.9; O2SAT 97
[2022-11-07] MEDS: ARGININE/GLUTAMINE/CALCIUM BMB 1 EACH POWD.PACK PO SCH (16:01)
[2022-11-07] MEDS: CLOTRIMAZOLE 1% 15 GM TUBE TP SCH (16:01)
[2022-11-07 20:00] VITALS: BP 113/73; TEMP 98.3; O2SAT 95
[2022-11-07] MEDS: CEFTRIAXONE 1 G in IV D5W 50 ML IV SCH (20:16)
[2022-11-07] MEDS: IV D5/0.45 NACL 1,000 ML IV PRN (20:22)
[2022-11-08] MEDS: oxyCODONE/APAP (5/325 MG) 1 UDTAB TABLET PO PRN ×3 (03:19→18:02)
[2022-11-08] MEDS: VANCOMYCIN HCL 0.75 GM in IV D5W 250 ML IV SCH ×2 (05:47→14:12)
[2022-11-08 06:57] LABS: CALCIUM, SERUM 8.8 mg/dL (8.5-10.1); CREATININE 0.6 mg/dL (0.6-1.3); POTASSIUM 3.9 mmol/L (3.5-5.1)
[2022-11-08 07:30] VITALS: BP 120/74; TEMP 97.7; O2SAT 95
[2022-11-08] MEDS: PROSOURCE / PROSTAT (PYXIS) 30 ML UDC PO SCH ×3 (08:34→17:18)
[2022-11-08] MEDS: ARGININE/GLUTAMINE/CALCIUM BMB 1 EACH POWD.PACK PO SCH ×2 (09:37→17:19)
[2022-11-08] MEDS: THERAHONEY GEL 1.5 OZ TUBE TP SCH (09:38)
[2022-11-08] MEDS: DAKINS QUARTER STRENGTH (0.125%) 480 ML BOTTLE TOP SCH (09:38)
[2022-11-08] MEDS: CLOTRIMAZOLE 1% 15 GM TUBE TP SCH ×2 (09:39→17:21)
[2022-11-08] MEDS: HYDROMORPHONE 1 MG/1 ML DISP.SYRIN IV PRN (10:20)
[2022-11-08 16:00] VITALS: BP 125/75; TEMP 98.4; O2SAT 95
[2022-11-08 20:00] VITALS: BP 107/78; TEMP 98.1; O2SAT 94
[2022-11-08] MEDS: CEFTRIAXONE 1 G in IV D5W 50 ML IV SCH (20:05)
[2022-11-09] MEDS: VANCOMYCIN HCL 0.75 GM in IV D5W 250 ML IV SCH ×2 (02:16→13:03)
[2022-11-09 02:33] VITALS: BP 120/70
[2022-11-09] MEDS: oxyCODONE/APAP (5/325 MG) 1 UDTAB TABLET PO PRN ×2 (02:34→09:16)
[2022-11-09 07:00] VITALS: BP 114/67; TEMP 98.1; O2SAT 95
[2022-11-09 07:17] LABS: CALCIUM, SERUM 8.8 mg/dL (8.5-10.1); CREATININE 0.6 mg/dL (0.6-1.3); POTASSIUM 3.6 mmol/L (3.5-5.1)
[2022-11-09] MEDS: PROSOURCE / PROSTAT (PYXIS) 30 ML UDC PO SCH ×2 (08:30→12:17)
[2022-11-09] MEDS: ARGININE/GLUTAMINE/CALCIUM BMB 1 EACH POWD.PACK PO SCH (08:31)
[2022-11-09] MEDS: THERAHONEY GEL 1.5 OZ TUBE TP SCH (09:13)
[2022-11-09] MEDS: DAKINS QUARTER STRENGTH (0.125%) 480 ML BOTTLE TOP SCH (09:14)
[2022-11-09] MEDS: CLOTRIMAZOLE 1% 15 GM TUBE TP SCH (09:32)
[2022-11-09] MEDS: HYDROMORPHONE 1 MG/1 ML DISP.SYRIN IV PRN (13:03)
== END 2022-11-09 15:15 | DRG 364 ==
LOC: ER 13:45 → TELE 18:25 → MED 20:37
PROVIDERS: ADMIT Internal Medicine; ATTEND Internal Medicine
PROC: 05HB33Z Insertion of Infusion Device into Right Basilic Vein, Percutaneous Approach (ICD-10-PCS; 2022-11-06)
PROC: 0QB30ZZ Excision of Left Pelvic Bone, Open Approach (ICD-10-PCS; principal; 2022-11-07)
DX: L89.324 Pressure ulcer of left buttock, stage 4 (principal); G82.50 Quadriplegia, unspecified; D63.8 Anemia in other chronic diseases classified elsewhere; E87.1 Hypo-osmolality and hyponatremia; L89.316 Pressure-induced deep tissue damage of right buttock; L89.896 Pressure-induced deep tissue damage of other site; Z99.3 Dependence on wheelchair; E87.6 Hypokalemia; Z20.822 Contact with and (suspected) exposure to COVID-19; Z74.01 Bed confinement status; Z59.00 Homelessness unspecified; G89.29 Other chronic pain; Z98.890 Other specified postprocedural states; Z86.19 Personal history of other infectious and parasitic diseases; Z79.899 Other long term (current) drug therapy; M20.41 Other hammer toe(s) (acquired), right foot; M20.42 Other hammer toe(s) (acquired), left foot; M21.612 Bunion of left foot; M21.611 Bunion of right foot
CPT/HCPCS: 36410; 36415; 71045-TC; 80048-TC; 80053-TC; 80076-TC; 80202-TC; 83605-TC; 83735-TC; 84100-TC; 84484-TC; 85025-TC; 85730-TC; 87040-TC; 87081-TC; A4223; A4349; A6253; A6403; C9803; G0378; J0692; J0696; J1170; J3370; J3490; J7030; J7042; J7060